=== PATIENT | male | born 1945 | race Caucasian/White ===

== ENCOUNTER 2018-03-25 09:15 | Day surgery (SDC) | payer MEDICARE, OTHER ==
[2018-03-21 12:10] LABS: HEMATOCRIT 40.3 % (42.0-54.0); HEMOGLOBIN 13.6 g/dL (13.5-17.5); MCH 32.5 pg (26.0-34.0); MCHC 33.7 g/dL (31.0-37.0); MCV 96.4 fL (80.0-100.0); MEAN PLATELET VOLUME 9.4 fL (7.4-10.4); RBC 4.18 10x6/uL (4.20-6.10); RDW 13.4 % (11.5-14.5); WBC 8.1 10x3/uL (4.8-10.8)
[~2018-03-25] VITALS: Ht 170.2 cm; Wt 84.5 kg
--- NOTE | ~2018-03-25 | OP ---
PATIENT NAME: NILAY HAUSER MEDICAL RECORD: [id number] :43 LOCATION:D.OPS ADMISSION DATE: SURGEON: CORBY BOWIE MD DATE OF OPERATION: 03/25/2018 PREOPERATIVE DIAGNOSIS: History of complex colon polyp. POSTOPERATIVE DIAGNOSES: 1. History of complex colon polyp with inability to endoscopically remove this polypoid mass at 42 cm. 2. Secondary sessile polyp at 42 cm, 8 mm x 7 mm. PROCEDURES: 1. Total colonoscopy to cecum. 2. Snare piecemeal biopsies of the polypoid mass at 42 cm with epinephrine injection and tattooing proximal and distal to the polyp. 3. Hot biopsy forceps polypectomy times 1. SURGEON: Corby Bowie MD ASSEMBLY INSPECTOR HELPER: None. BLOOD LOSS: Minimal. ANESTHESIA: General. COMPLICATIONS: None. The risks, possible complications and alternatives to procedure were explained to the patient. He elects to proceed. OPERATIVE COURSE: The patient was conveyed to the operating room electively on 03/25/2018. General anesthesia was induced by the anesthesia staff. The patient was placed in the Song position. A digital rectal examination was performed. A colonoscope was inserted through the anus. It was easily advanced to the cecum. Upon withdrawal, I irrigated and aspirated extensively. The prep was adequate. A small polyp was noted just distal to 42 cm and this was removed utilizing the hot biopsy forceps polypectomy technique. I then withdrew into what was a bilobed polypoid mass. I advanced a sclerotherapy needle into the base of the mass. I injected epinephrine for postoperative hemorrhage control. I then began to shave off pieces of this mass utilizing the hot snare. I gathered up the pieces, withdrew them out through the anus and then readvanced the scope and repeated this process several times. I then realized that the base of this polypoid mass was large and appeared to infiltrate into the wall of the colon, so I abandoned this approach. I then advanced a sclerotherapy needle. I then performed a submucosal tattooing proximal and distal to the polypoid mass with Virgen ink. I then slowly withdrew the endoscope. A combination of normal imaging and narrow band imaging were utilized. A retroflexed view was obtained in the rectum. I then un-retroflexed the scope and removed it under direct vision. OPERATIVE REPORT [id number] NILAY HAUSER I will see the patient in my office. I will recommend a laparoscopic segmental colectomy in the future. TRANSINT:[id number] Voice Confirmation ID: [id number] DOCUMENT ID: [id number] CORBY BOWIE MD at 1321 CC: [id number] DICTATION DATE: 03/31/18 1110 MOTOR COACH TOUR OPERATOR: 03/31/18 1136 [facility] 03/25/18 [place] [id number] [place] [id number]
--- NOTE | ~2018-03-25 | CN ---
PATIENT NAME:NILAY HAUSER MEDICAL RECORD: [id number] : 43 LOCATION:[facility] ADMIT DATE: ACCOUNT: [id number] CONSULTING PHYSICIAN: OFE DHILLON MD REFERRING PHYSICIAN: YUN BOWIE MD DATE OF CONSULTATION: 03/25/2018 DIAGNOSES: 1. Paroxysmal atrial fibrillation. 2. Hypertension. HISTORY OF PRESENT ILLNESS: This is a gentleman who presents for colonoscopy and polyp removal by Dr. Bowie, who went into atrial fibrillation during the procedure. He has a history of atrial fibrillation 4 years ago. He went into atrial fibrillation. He converted to sinus rhythm by the time I saw him as an outpatient. He was treated with diltiazem for his atrial fibrillation and hypertension. Now, he is in atrial fibrillation. His heart rate is in the 110-120 range. He is asymptomatic with the atrial fibrillation. EKG has no ST-T changes elsewise. PHYSICAL EXAMINATION: GENERAL APPEARANCE: Well-nourished, well-developed, appears stated age. Level of distress, comfortable. PSYCHIATRIC: Mental status, alert, normal affect. Orientation, oriented to time, place and person. EYES: Lids and conjunctiva, noninjected. No discharge, no pallor. ENT: Lips, teeth, gums, normal dentition. Oropharynx, no cyanosis, no pallor. NECK: Carotid arteries, bilateral normal upstroke, no bruits, no thrills. JUGULAR VEINS: No jugular venous pressure or distention. CERVICAL LYMPH NODES: Nontender, nonenlarged. THYROID: Not enlarged. Nontender. No nodules. LUNGS: Respiratory effort, unlabored. CHEST: Normal curvature. No thoracic deformity. No chest wall tenderness. Percussion, resonant. Auscultation, clear. No wheezes, no rales, no rhonchi. CARDIOVASCULAR: The heart is irregularly irregular in atrial fibrillation. EXTREMITIES: No cyanosis, no edema. Peripheral pulses, full and equal in all extremities, except as noted. No bruits appreciated. ABDOMEN: Soft, nondistended. Normal aorta. No bruit. Nontender. No masses. Liver, nontender, no hepatomegaly. Spleen, nontender, no splenomegaly. MUSCULOSKELETAL: No joint tenderness. No joint swelling. No erythema. NEUROLOGICAL: Normal gait, normal strength, normal tone. SKIN: Warm and dry. OVERALL IMPRESSION: Atrial fibrillation, paroxysmal. At this time, we will give him sotalol 80 mg b.i.d. in addition to his diltiazem and see him early next week. We will anticoagulate at that time if he still remains in atrial fibrillation, most likely he will convert to sinus rhythm. TRANSINT:[id number] Voice Confirmation ID: [id number] DOCUMENT ID: [id number] CONSULT REPORT [id number] NILAY HAUSER JEFFREY MD at 1823 CC: [id number] DICTATION DATE: 03/25/18 1630 COAL HANDLING SUPERVISOR: 03/25/[address] [facility] [place] 03/25/[address] [facility] [address] [place] [address]
[2018-03-25 09:42] VITALS: BP 168/79; BMI 29.2
[2018-03-25 09:57] VITALS: BP 168/79; Ht 170.2 cm; Wt 84.5 kg
== END 2018-03-25 17:20 | disposition home or self-care (01) ==
LOC: D.OPS 09:15 → D.PAN 12:30 → D.OPS 17:20
PROVIDERS: Anesthesiology
DX: D12.5 Benign neoplasm of sigmoid colon (principal); K63.5 Polyp of colon; I48.0 Paroxysmal atrial fibrillation; I10 Essential (primary) hypertension; Z01.812 Encounter for preprocedural laboratory examination

== ENCOUNTER 2018-05-18 10:30 | Inpatient (IN) | payer MEDICARE, OTHER ==
[2018-05-17 12:34] LABS: ANION GAP 13.8 mmol/L (8-16); CALCIUM 8.5 mg/dL (8.5-10.1); CARBON DIOXIDE 25.4 mmol/L (21.0-32.0); CREATININE - SERUM 1.1 mg/dL (0.6-1.3); POTASSIUM - SERUM 4.2 mmol/L (3.5-5.1)
[2018-05-17 16:46] LABS: HEMATOCRIT 40.9 % (42.0-54.0); HEMOGLOBIN 13.7 g/dL (13.5-17.5); MCH 32.7 pg (26.0-34.0); MCHC 33.5 g/dL (31.0-37.0); MCV 97.6 fL (80.0-100.0); MEAN PLATELET VOLUME 10.4 fL (7.4-10.4); RBC 4.19 10x6/uL (4.20-6.10); RDW 13.8 % (11.5-14.5); WBC 7.6 10x3/uL (4.8-10.8)
[~2018-05-18] VITALS: Ht 170.2 cm; Wt 83.9 kg
--- NOTE | ~2018-05-18 | OP ---
PATIENT NAME: NILAY HAUSER MEDICAL RECORD: [id number] :43 LOCATION:D.MS Kay2208 ADMISSION DATE:05/18/18 SURGEON: YUN BOWIE MD DATE OF OPERATION: 05/18/2018 PREOPERATIVE DIAGNOSIS: History of a polypoid colonic mass that was endoscopically unresectable and it has been tattooed. POSTOPERATIVE DIAGNOSIS: History of a polypoid colonic mass that was endoscopically unresectable and it has been tattooed. PROCEDURE: Hand-assisted laparoscopic surgery - sigmoid colectomy. SURGEON: Yun Bowie MD RADIO PROGRAM DIRECTOR: None. BLOOD LOSS: Less than 100 cc. ANESTHESIA: General. COMPLICATIONS: None. DRAINS: Times one 10-Pitcair[place] Islander round fully fluted drain. The risks, possible complications, and alternatives to the procedure were explained to the patient. He elects to proceed. OPERATIVE COURSE: The patient was conveyed to the operating room electively on 05/18/2018. General anesthesia was induced by the anesthesia staff. The abdomen was sterilely prepped and draped. A small skin skylar was accomplished in the left upper quadrant. A Veress needle was inserted through the skin skylar into the peritoneal cavity. CO2 insufflation was begun. Once a sufficient pneumoperitoneum had been achieved, a 5-mm trocar was inserted in the epigastrium. Under direct internal vision utilizing a television camera, another 5-mm trocar was inserted through an incision at the umbilicus. Another 5-mm trocar was inserted through an incision in the left lower quadrant. The right colon was grasped and removed medially. I incised along the left white line of Toldt. I incised up to the splenic flexure of the colon. I followed the left colon medially. I noted one of the tattoos. I could not find the other tattoo. A transverse incision was accomplished in the midline 2 fingerbreadths cephalad to the pubic symphysis. Sharp dissection was carried down through skin and subcutaneous tissue as well as Azucena fascia. The anterior fascia was incised transversely. I incised the linea alba in a cephalad and caudad direction. I entered the peritoneal cavity sharply. There was a muscular structure identified that may have been the dome of the bladder. There was no full-thickness injury, however, I did reinforce this area with 2 layers of running horizontal mattress 2-0 Vicryls. We gave intravenous methylene blue. There was no spillage of methylene blue. I entered the peritoneal cavity sharply. An Deshawn retractor was placed. The GelPort was placed on top of the Deshawn retractor. Utilizing a hand-assisted technique, I performed some finger dissection behind the left colon all the way OPERATIVE REPORT [id number] ANALISANILAY up to the splenic flexure. I then incised in the inner sigmoid fossa. I incised along both sides of the mesorectum. I identified the left ureter. It was retracted for protection. I chose the distal extent of my resection to be the junction of sigmoid colon and rectum. I created a window in the mesorectum and stapled across the large bowel here with a LORENZO-75 stapler. I chose the proximal extent of my resection to be just proximal to the tattooed area. A window was created in the mesocolon and I stapled across the bowel here with a LORENZO-75 stapler. I then took down the interpose mesentery with the open Super Jaw EnSeal device. The bowel was then opened on the back table. The tattooed area was identified. No mass was identified, however. I then rescrubbed and regowned. I returned to the operative table. I examined the stapled off portion of the descending colon. I thought that I might have found the proximal tattoo. A window was created in the mesocolon just proximal to this and I stapled across the colon here with a LORENZO-75 stapler. The remaining mesentery distal to this was taken down with the Super Jaw EnSeal device. I opened this portion of the colon on the backtable and indeed the polypoid mass was identified and there appeared to be free margins grossly. The rectum and the descending colon were then placed in apposition side by side. They were kept in place with 3-0 Vicryls. A small proctotomy and small colotomy were accomplished. Anvils of the LORENZO-75 stapler were advanced and then fired. The resulting large bowel defect was closed with a running 3-0 Monocryl suture. I then imbricated this back on itself. I then reinforced this with imbricating horizontal mattress of 3-0 Vicryls. I irrigated and aspirated. There was no bleeding. I folded some omentum down over the anastomosis and sutured it in place with a single 3-0 Vicryl suture. I reperitonealized with a running #1 Vicryl. The rectus muscles were approximated with interrupted horizontal mattress #1 Vicryls. Azucena fascia was approximated with interrupted 3-0 Vicryls. The subdermis was approximated with interrupted 3-0 Vicryls. The skin was approximated with a running intracuticular 3-0 Vicryl. Through the left lower quadrant trocar site, a 10-[place] Islander round Spencer drain was advanced. The trocar was removed as well as the trocars. The drain was sutured to skin with a 3-0 Prolene. The trocar site at the umbilicus was closed with a 4-0 Vicryl Rapide suture. The other trocar site was closed with a 3-0 Vicryl suture. Sterile dressings were applied. The patient was then extubated and conveyed to the post-anesthesia care unit, where he was in stable condition. TRANSINT:[id number] Voice Confirmation ID: [id number] DOCUMENT ID: [id number] OPERATIVE REPORT [id number] NILAY HAUSER, YUN RANDALL at 1403 CC: GENARO [place], BARTON MD and OFE DHILLON [id number] DICTATION DATE: 05/18/182140 QUARRYMAN: 05/18/182207 ADM IN [facility] [address] [place] [address]
--- NOTE | ~2018-05-18 | MORECARE ---
CASE MANAGEMENT DISCHARGE SUMMARY PATIENT: NILAY HAUSER UNIT: [id number] ADM DATE: 05/18/18 AGE: 73 : 43 SEX: M ROOM/BED: D.2208 AUTHOR: RAKANDOC PHYSICIAN: REFERRING PHYSICIAN: YUN BOWIE MD DATE OF SERVICE: 05/20/18 Discharge Plan Patient Name: NILAY HAUSER Facility: [facility]:[place] : 1945 Planned Disposition: Home Anticipated Discharge Date: Discharge Date: Expected LOS: Initial Reviewer: [email or web address] Initial Review Date: 05/18/2018 Generated: 05/20/18 4:50 pm Comments DCP- Discharge Planning Updated by [email or web address]: Annita Acosta on 05/20/18 2:[address] Patient Name: NILAY HAUSER Admission Status: Elective Accout number: [id number] Admission Date: 05-18-2018 : 1945 Admission Diagnosis:POLYP OF COLON Attending: YUN BOWIE Current LOS: 2 Anticipated DC Date: Planned Disposition: Home Primary Insurance: MEDICARE A & B Discharge Planning Comments: CM met with patient to assess discharge planning needs. Patient stated that he lives independently at home with his and plans to return there at discharge. His daughter (Radha) will be the one to drive him home at DC. He denies any HH or DME and does not think he will need it at discharge. CM will continue to follow and assist with DC planning needs Delivery Truck Driver: Annita Acosta DCP- Discharge Planning Updated by [email or web address]: Annita Acosta on 05/19/18 12:[address] PATIENTASKED ME TO COME BACK AT A LATER DATE DCPIA - Discharge Planning Initial Assessment Updated by [email or web address]: Annita Acosta on 05/20/18 3:40 pm * Is the patient Alert and Oriented? Yes * How many steps to enter\exit or inside your home? * PCP ROBERT * Pharmacy [facility] * Preadmission Environment Home with Family * ADLs Independent * Equipment None * List name and contact numbers for known caregivers / representatives who currently or will assist patient after discharge: RADHA (DAUGHTER) [phone] * Verbal permission to speak to the caregivers and representatives has been obtained from the patient. Yes * Community resources currently utilized None * Additional services required to return to the preadmission environment? No * Can the patient safely return to the preadmission environment? Yes * Has this patient been hospitalized within the prior 30 days at any hospital? No Last DP export: 05/19/18 12:09 Patient Name: NILAY HAUSER Page [phone] at 1550 All edits/amendments must be made on the electronic document DICTATION DATE: 05/20/181549 TELECOMMUNICATIONS ANALYST: DEMETRA 05/20/181549 RPT#: [id number] DC DATE: STATUS: ADM IN [facility] [address] [place] [address] END OF REPORT
--- NOTE | ~2018-05-18 | MORECARE ---
CASE MANAGEMENT DISCHARGE SUMMARY PATIENT: NILAY HAUSER UNIT: [id number] ADM DATE: 05/18/18 AGE: 73 : 43 SEX: M ROOM/BED: D.2208 AUTHOR: RAKANDOC PHYSICIAN: REFERRING PHYSICIAN: YUN BOWEI MD DATE OF SERVICE: 05/25/18 Discharge Plan Patient Name: NILAY HAUSER Facility: [facility]:[place] : 1945 Planned Disposition: Home Anticipated Discharge Date: 05/22/18 Discharge Date: 05/22/2018 Expected LOS: 4 Initial Reviewer: [email or web address] Initial Review Date: 05/18/2018 Generated: 05/25/18 9:58 am Comments DCP- Discharge Planning Updated by [email or web address]: Annita Acosta on 05/20/18 2:[address] Patient Name: NILAY HAUSER Admission Status: Elective Accout number: [id number] Admission Date: 05-18-2018 : 1945 Admission Diagnosis:POLYP OF COLON Attending: YUN BOWIE Current LOS: 2 Anticipated DC Date: Planned Disposition: Home Primary Insurance: MEDICARE A & B Discharge Planning Comments: CM met with patient to assess discharge planning needs. Patient stated that he lives independently at home with his and plans to return there at discharge. His daughter (Radha) will be the one to drive him home at DC. He denies any HH or DME and does not think he will need it at discharge. CM will continue to follow and assist with DC planning needs Bar Host: Annita Acosta DCP- Discharge Planning Updated by [email or web address]: Annita Acosta on 05/19/18 12:[address] PATIENTASKED ME TO COME BACK AT A LATER DATE DCPIA - Discharge Planning Initial Assessment Updated by [email or web address]: Annita Acosta on 05/20/18 3:40 pm * Is the patient Alert and Oriented? Yes * How many steps to enter\exit or inside your home? * PCP JONES * [email or web address] * Preadmission Environment Home with Family * ADLs Independent * Equipment None * List name and contact numbers for known caregivers / representatives who currently or will assist patient after discharge: RADHA (DAUGHTER) [phone] * Verbal permission to speak to the caregivers and representatives has been obtained from the patient. Yes * Community resources currently utilized None * Additional services required to return to the preadmission environment? No * Can the patient safely return to the preadmission environment? Yes * Has this patient been hospitalized within the prior 30 days at any hospital? No Coverage Notice Reviewer: [email or web address] Celestine Johnson Notice Issued Date-Time: 05/22/2018 16:10 Notice Type: IM Discharge Notice Notice Delivered To: Patient Relationship to Patient: Steam Boiler Fireman Name: Delivery Method: HAND - Hand Delivered Nataliya Days: Prior Verbal Notification: Recipient Understood Notice: Yes Recipient Signature: Yes Med Rec Note Co-signed by Attending: Coverage Notice Comment: Last DP export: 05/22/18 6:11 Patient Name: NILAY HAUSER Page [phone] at 0859 All edits/amendments must be made on the electronic document DICTATION DATE: 05/25/18857 ABA TUTOR: DEMETRA 05/25/1858 RPT#: [id number] DC DATE:05/22/18 STATUS: DIS IN [facility] [address] [place] [address] END OF REPORT
--- NOTE | ~2018-05-18 | MORECARE ---
CASE MANAGEMENT DISCHARGE SUMMARY PATIENT: NILAY HAUSER UNIT: [id number] ADM DATE: 05/18/18 AGE: 73 : 44 SEX: M ROOM/BED: D.2208 AUTHOR: RAKANDOC PHYSICIAN: REFERRING PHYSICIAN: YUN BOWIE MD DATE OF SERVICE: 05/22/18 Discharge Plan Patient Name: NILAY HAUSER Facility: [facility]:[place] : 1945 Planned Disposition: Home Anticipated Discharge Date: 05/22/18 Discharge Date: 05/22/2018 Expected LOS: 4 Initial Reviewer: [email or web address] Initial Review Date: 05/18/2018 Generated: 05/22/18 8:10 pm Comments DCP- Discharge Planning Updated by [email or web address]: Annita Acosta on 05/20/18 2:[address] Patient Name: NILAY HAUSER Admission Status: Elective Accout number: [id number] Admission Date: 05-18-2018 : 1945 Admission Diagnosis:POLYP OF COLON Attending: YUN BOWIE Current LOS: 2 Anticipated DC Date: Planned Disposition: Home Primary Insurance: MEDICARE A & B Discharge Planning Comments: CM met with patient to assess discharge planning needs. Patient stated that he lives independently at home with his and plans to return there at discharge. His daughter (Radha) will be the one to drive him home at DC. He denies any HH or DME and does not think he will need it at discharge. CM will continue to follow and assist with DC planning needs Logistics Planning Manager: Annita Acosta DCP- Discharge Planning Updated by [email or web address]: Annita Acosta on 05/19/18 12:[address] PATIENTASKED ME TO COME BACK AT A LATER DATE DCPIA - Discharge Planning Initial Assessment Updated by [email or web address]: Annita Acsota on 05/20/18 3:40 pm * Is the patient Alert and Oriented? Yes * How many steps to enter\exit or inside your home? * PCP JONES * [facility] * Preadmission Environment Home with Family * ADLs Independent * Equipment None * List name and contact numbers for known caregivers / representatives who currently or will assist patient after discharge: RADHA (DAUGHTER) [phone] * Verbal permission to speak to the caregivers and representatives has been obtained from the patient. Yes * Community resources currently utilized None * Additional services required to return to the preadmission environment? No * Can the patient safely return to the preadmission environment? Yes * Has this patient been hospitalized within the prior 30 days at any hospital? No Coverage Notice Reviewer: [email or web address] Celestine Johnson Notice Issued Date-Time: 05/22/2018 16:10 Notice Type: IM Discharge Notice Notice Delivered To: Patient Relationship to Patient: Makeup Sales Consultant Name: Delivery Method: HAND - Hand Delivered Nataliya Days: Prior Verbal Notification: Recipient Understood Notice: Yes Recipient Signature: Yes Med Rec Note Co-signed by Attending: Coverage Notice Comment: Last DP export: 05/20/18 2:50 Patient Name: NILAY HAUSER Page 57589 at 1911 All edits/amendments must be made on the electronic document DICTATION DATE: 05/22/181909 ASSISTANT MANAGER AIRSIDE OPERATIONS: DEMETRA 05/22/181909 RPT#: [id number] DC DATE:05/22/18 STATUS: DIS IN [facility] [address] [place] [address] END OF REPORT
--- NOTE | ~2018-05-18 | MORECARE ---
CASE MANAGEMENT DISCHARGE SUMMARY PATIENT: NILAY HAUSER UNIT: [id number] ADM DATE: 05/18/18 AGE: 73 : 44 SEX: M ROOM/BED: D.2208 AUTHOR: ZULAY BLEDSOE PHYSICIAN: REFERRING PHYSICIAN: YUN BOWIE MD DATE OF SERVICE: 05/19/18 Discharge Plan Patient Name: NILAY HAUSER Facility: [facility]:[place] : 1945 Planned Disposition: Anticipated Discharge Date: Discharge Date: Expected LOS: Initial Reviewer: [email or web address] Initial Review Date: 05/18/2018 Generated: 05/19/18 2:09 pm Comments DCP- Discharge Planning Updated by [email or web address]: Annita Acosta on 05/19/18 12:[address] PATIENTASKED ME TO COME BACK AT A LATER DATE Patient Name: NILAY HAUSER Page [phone] at 1309 All edits/amendments must be made on the electronic document DICTATION DATE: 05/19/18 1309 PERFORMANCE IMPROVEMENT COORDINATOR: DEMETRA 05/19/18 1309 RPT#: [id number] DC DATE: STATUS: ADM IN [facility] [address] [place] [address] END OF REPORT
[~2018-05-18 10:30] MED LIST: BETAPACE 80 MG80 MG PO; LIPITOR10 MG PO
[2018-05-18 11:58] VITALS: BP 141/73; BMI 29.0
[2018-05-19 03:23] VITALS: BP 132/60; BMI 29.0
[2018-05-19 07:02] LABS: BASOPHILS 0.1 % (0-2); EOSINOPHILS 0 % (0-7); HEMATOCRIT 37.6 % (42.0-54.0); HEMOGLOBIN 12.5 g/dL (13.5-17.5); IMMATURE GRANULOCYTES 0.2 % (0-5); LYMPHOCYTES 6.8 % (15-50); MCH 31.9 pg (26.0-34.0); MCHC 33.2 g/dL (31.0-37.0); MCV 95.9 fL (80.0-100.0); MEAN PLATELET VOLUME 9.7 fL (7.4-10.4); NEUTROPHILS 86.9 % (40-80); RBC 3.92 10x6/uL (4.20-6.10); RDW 13.5 % (11.5-14.5)
[2018-05-19 07:26] LABS: ALKALINE PHOSPHATASE 71 U/L (46-116); ALT (SGPT) 28 U/L (10-68); BILIRUBIN - TOTAL 0.65 mg/dL (0.2-1.3); CALC OSMOLALITY 286 mosm/kg (275-300); CALCIUM 7.6 mg/dL (8.5-10.1); CARBON DIOXIDE 23.7 mmol/L (21.0-32.0); CHLORIDE - SERUM 108 mmol/L (98-107); CREATININE - SERUM 1.2 mg/dL (0.6-1.3); GLUCOSE 108 mg/dL (74-106); MAGNESIUM - SERUM 1.7 mg/dL (1.8-2.4); PHOSPHOROUS 4.5 mg/dL (2.5-4.9); POTASSIUM - SERUM 4.2 mmol/L (3.5-5.1); PROTEIN - SERUM 5.5 g/dL (6.4-8.2); SODIUM 143 mmol/L (136-145); TROPONIN-I < 0.017 ng/mL (0.000-0.060); UREA NITROGEN 15 mg/dL (7-18); eGFR NON AFRICAN AMERICAN 63 mL/min (90-120)
[2018-05-19 07:36] LABS: PLATELET COUNT 141 10x3/uL (130-400); WBC 16.1 10x3/uL (4.8-10.8)
[2018-05-19 08:57] VITALS: BP 110/46
[2018-05-19 10:58] VITALS: Ht 170.2 cm; Wt 83.9 kg
[2018-05-19 12:46] VITALS: BP 99/39
[2018-05-19 17:26] VITALS: BP 125/49
[2018-05-19 21:55] VITALS: BP 137/65
[2018-05-20 06:37] VITALS: BP 95/59
[2018-05-20 09:12] VITALS: BP 136/56
[2018-05-20 12:00] VITALS: BP 119/35
[2018-05-20 16:33] VITALS: BP 141/70
[2018-05-20 22:08] VITALS: BP 139/65
[2018-05-21 01:59] LABS: APPEARANCE CLOUDY (CLEAR); BACTERIA NONE SEEN /hpf (NONE SEEN); BILIRUBIN NEGATIVE (NEGATIVE); COLOR PINK (YELLOW); EPITHELIAL CELLS NSEEN /hpf (0-5); GLUCOSE NEGATIVE (NEGATIVE); KETONE SMALL mg/dL (NEGATIVE); NITRITE NEGATIVE (NEGATIVE); PROTEIN 1+ mg/dL (NEGATIVE); RED CELLS - URINE >50 /hpf (0-5); UROBILINOGEN NORMAL (NORMAL); WHITE CELLS - URINE NSEEN /hpf (0-5)
[2018-05-21 05:59] LABS: BASOPHILS 0.2 % (0-2); EOSINOPHILS 1.5 % (0-7); HEMATOCRIT 34.4 % (42.0-54.0); HEMOGLOBIN 11.5 g/dL (13.5-17.5); IMMATURE GRANULOCYTES 0.2 % (0-5); LYMPHOCYTES 15.2 % (15-50); MCH 32.2 pg (26.0-34.0); MCHC 33.4 g/dL (31.0-37.0); MCV 96.4 fL (80.0-100.0); MEAN PLATELET VOLUME 10.3 fL (7.4-10.4); MONOCYTES 10.5 % (2-11); NEUTROPHILS 72.4 % (40-80); PLATELET COUNT 129 10x3/uL (130-400); RBC 3.57 10x6/uL (4.20-6.10); RDW 13.3 % (11.5-14.5)
[2018-05-21 06:07] LABS: WBC 10.6 10x3/uL (4.8-10.8)
[2018-05-21 06:11] VITALS: BP 145/57
[2018-05-21 06:28] LABS: CALCIUM 7.5 mg/dL (8.5-10.1); CHLORIDE - SERUM 109 mmol/L (98-107); CREATININE - SERUM 0.9 mg/dL (0.6-1.3); GLUCOSE 113 mg/dL (74-106); MAGNESIUM - SERUM 1.8 mg/dL (1.8-2.4); SODIUM 140 mmol/L (136-145); eGFR NON AFRICAN AMERICAN 88 mL/min (90-120)
[2018-05-21 06:31] LABS: CALC OSMOLALITY 277 mosm/kg (275-300); PHOSPHOROUS 2.1 mg/dL (2.5-4.9); POTASSIUM - SERUM 3.5 mmol/L (3.5-5.1); UREA NITROGEN 8 mg/dL (7-18)
[2018-05-21 10:04] VITALS: BP 151/71
[2018-05-21 16:22] VITALS: BP 119/71
[2018-05-21 20:54] VITALS: BP 169/69
[2018-05-22 05:43] LABS: BASOPHILS 0.2 % (0-2); EOSINOPHILS 4.6 % (0-7); HEMATOCRIT 35.3 % (42.0-54.0); HEMOGLOBIN 12.1 g/dL (13.5-17.5); IMMATURE GRANULOCYTES 0.2 % (0-5); LYMPHOCYTES 19.5 % (15-50); MCH 32.4 pg (26.0-34.0); MCHC 34.3 g/dL (31.0-37.0); MEAN PLATELET VOLUME 9.8 fL (7.4-10.4); MONOCYTES 9.1 % (2-11); NEUTROPHILS 66.4 % (40-80); PLATELET COUNT 147 10x3/uL (130-400); RBC 3.74 10x6/uL (4.20-6.10); RDW 13.1 % (11.5-14.5); WBC 8.5 10x3/uL (4.8-10.8)
[2018-05-22 05:45] LABS: MCV 94.4 fL (80.0-100.0)
[2018-05-22 06:10] LABS: CALC OSMOLALITY 277 mosm/kg (275-300); CALCIUM 8.3 mg/dL (8.5-10.1); CARBON DIOXIDE 24.4 mmol/L (21.0-32.0); CHLORIDE - SERUM 107 mmol/L (98-107); CREATININE - SERUM 0.8 mg/dL (0.6-1.3); GLUCOSE 116 mg/dL (74-106); PHOSPHOROUS 2.2 mg/dL (2.5-4.9); POTASSIUM - SERUM 3.5 mmol/L (3.5-5.1); SODIUM 139 mmol/L (136-145); UREA NITROGEN 9 mg/dL (7-18); eGFR NON AFRICAN AMERICAN > 90 mL/min (90-120)
[2018-05-22 08:23] VITALS: BP 156/77
[2018-05-22 12:16] VITALS: BP 153/72
[2018-05-22] MEDS ORDERED: NORCO 10-325 TA1 TAB PO (15:52)
[2018-05-22] MEDS ORDERED: LEVAQUIN750 MG PO (15:52)
[2018-05-22] MEDS ORDERED: COLACE100 MG PO (15:53)
[2018-05-22] MEDS ORDERED: FLAGYL500 MG PO (15:53)
== END 2018-05-22 16:14 | disposition home or self-care (01) | DRG 331 ==
LOC: D.MS 11:00 → D.SDCHOLD 11:00 → D.MS 20:25
PROVIDERS: Anesthesiology; Surgery
PROC: 0DTM0ZZ Resection of Descending Colon, Open Approach (ICD-10-PCS; principal; 2018-05-18 13:30)
DX: K63.5 Polyp of colon (principal); I10 Essential (primary) hypertension; I49.1 Atrial premature depolarization

== ENCOUNTER → 2018-08-15 17:07 | Outpatient (CLI) | payer MEDICARE, OTHER ==
[2018-05-19 10:58] VITALS: BMI 29.0
[~2018-08-15 17:07] MED LIST changes: +AMOXICILLIN500 M1 PO; +COLACE100 MG PO; +FLAGYL500 MG PO; +LEVAQUIN750 MG PO; +NORCO 10-325 TA1 TAB PO; +OXYBUTYNIN CHLOR5 MG PO
== END | disposition home or self-care (01) ==
LOC: D.LABREF 17:07
DX: N39.0 Urinary tract infection, site not specified (principal)

== ENCOUNTER 2018-08-15 19:49 | Emergency (ER) | payer MEDICARE, OTHER ==
[~2018-08-15] VITALS: Ht 170.2 cm; Wt 84.1 kg
[~2018-08-15 19:49] MED LIST changes: -AMOXICILLIN500 M1 PO; -OXYBUTYNIN CHLOR5 MG PO
[2018-08-15 19:53] VITALS: Ht 170.2 cm; Wt 84.1 kg
[2018-08-16 00:03] VITALS: BP 143/88
== END 2018-08-15 22:25 | disposition home or self-care (01) ==
LOC: D.ER 19:49
DX: R33.9 Retention of urine, unspecified (principal); I10 Essential (primary) hypertension

== ENCOUNTER 2018-09-01 05:15 | Day surgery (SDC) | payer MEDICARE, OTHER ==
[2018-08-30 15:36] LABS: HEMATOCRIT 40.7 % (42.0-54.0); HEMOGLOBIN 13.9 g/dL (13.5-17.5); MCH 32.2 pg (26.0-34.0); MCHC 34.2 g/dL (31.0-37.0); MCV 94.2 fL (80.0-100.0); MEAN PLATELET VOLUME 9.7 fL (7.4-10.4); RBC 4.32 10x6/uL (4.20-6.10); RDW 13.2 % (11.5-14.5); WBC 8.4 10x3/uL (4.8-10.8)
[~2018-09-01] VITALS: Ht 170.2 cm; Wt 84.8 kg
[2018-09-01] MEDS ORDERED: OXYBUTYNIN CHLOR5 MG PO (06:16)
[2018-09-01 06:17] VITALS: BP 158/76; Ht 170.2 cm; Wt 84.8 kg
[2018-09-01] MEDS ORDERED: AMOXICILLIN500 M1 PO (06:17)
--- NOTE | 2018-09-01 08:08 | NUR ---
SHORT STAY PER NASH PLASENCIA BARGE ENGINEER
--- NOTE | 2018-09-01 08:32 | OP ---
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 ERICKA 60 mL prostate, IPSS 16, quality of life score is 4, postvoid residual is 811 mL. FINDINGS: Bilateral lateral lobe hyperplasia. Velvety bladder mucosal irritation from the catheter. PROCEDURES: UroLift times 4 implants. BLOOD LOSS: Minimal. CLINICAL HISTORY: This is a 73-year-old male who was referred for urinary incontinence. This has been present for a long time. When I examined his postvoid residual, it was 811 mL. He has been having overflow urinary incontinence. We placed an indwelling Puente catheter. He also had a urinary tract infection at that time. On digital rectal examination, his prostate is enlarged and estimated to be about 60 mL or 60 grams in size. He wishes to have the UroLift procedure done. He is not allergic to any medications. We gave him Ancef manager regional to the OR. DESCRIPTION OF PROCEDURE: The patient was given IV sedation. He was then placed in the dorsal lithotomy position and prepped and draped. We introduced the UroLift cystoscope. The penile urethra has no strictures. Prostatic urethra shows obstruction from bilateral lateral lobes. There was no median lobe of significance. Going into the bladder, we see a lot of mucosal irritation from a recent cystitis and the indwelling Puente catheter. We placed 2 UroLift units near the bladder neck. These are placed 1.5 to 2 cm distal to the bladder neck at the level of the anterior urethra. Then, we placed 2 more units, 1 on each side at the level of the verumontanum at the anterior urethral level. We now had a wide open urethral channel. I placed a 16-Northern Irish Puente catheter back into the bladder. We will send him home with the Puente catheter to allow the edema and anesthetic effects to wear off. I will then see him next week in the office for a voiding trial. TRANSINT:[id number] Voice Confirmation ID: [id number] DOCUMENT ID: [id number] YUN BARBOSA MD at 0832 CC: [id number] DICTATION DATE: 09/01/18806 MANAGER INVENTORY MANAGEMENT: 09/01/18 0818 REG [facility] [address] [place] [id number]
== END 2018-09-01 09:25 | disposition home or self-care (01) ==
LOC: D.OPS 05:15 → D.PAN 09:00 → D.OPS 09:00 → D.PAN 09:15 → D.OPS 09:15
PROVIDERS: Anesthesiology; ATTEND Urology
DX: N40.1 Benign prostatic hyperplasia with lower urinary tract symptoms (principal); N13.8 Other obstructive and reflux uropathy; R33.8 Other retention of urine; Z01.812 Encounter for preprocedural laboratory examination